=== PATIENT | male | born 1965 | race Caucasian/White ===

== ENCOUNTER 2018-07-19 02:24 | Day surgery (SDC) | payer BC ==
[~2018-07-19] VITALS: Ht 182.9 cm; Wt 88.9 kg
[~2018-07-19 02:24] MED LIST: AZIT500T47 PO; DOXY150T6 PO; KET10 PO; LOR5/325 PO; LOSA-54 PO; METH4TAB57 PO; WARF5TAB23 PO; WARFARIN PO; [UNRECOGNIZED DRUG - CODE]
--- NOTE | 2018-07-19 06:40 | NUR ---
SPOKE WITH DR. ETIENNE. HE STATED HE WAS FINE WITH HIM NOT TAKING METOPROLOL AND DID NOT NEED ANY INSULIN FOR HIS BLOOD GLUCOSE LEVEL.
[2018-07-19 06:50] VITALS: BP 117/83
[2018-07-19] MEDS ORDERED: LIDOCAINE/SOD BICARB 8.4% SYR ID ONE (07:20)
[2018-07-19] MEDS ORDERED: NORMOSOL R SOLN(*) 1000 ML BAG 1,000 ML IV PRN (07:20)
[2018-07-19 07:21] LABS: INR 1.08
[2018-07-19] MEDS ORDERED: LIDOCAINE MPF 1% 5 ML VIAL ONE (07:52)
[2018-07-19] MEDS ORDERED: PROPOFOL EMUL(*) 10MG/ML 20 ML 40 ML ONE (07:52)
[2018-07-19 08:45] VITALS: BP 97/73
[2018-07-19 09:00] VITALS: BP 96/74
[2018-07-19 09:31] VITALS: BP 112/86
[2018-07-19 09:36] VITALS: BP 113/87
[2018-07-19 09:37] VITALS: BP 138/101
== END 2018-07-19 09:50 | disposition short-term general hospital (02) ==
LOC: OR 02:24
PROVIDERS: ATTEND Family Medicine
DX: K92.1 Melena (principal)
CPT/HCPCS: 00811; 36415; 45378; 85610; J2001; J2704